=== PATIENT | female | born 1945 | race Caucasian/White ===

== ENCOUNTER 2024-11-15 20:40 | Observation (INO) ==
[2024-11-15] MEDS ORDERED: IBUPROFEN 800 MG TABLET PO ONE (21:21)
[2024-11-15] MEDS ORDERED: AMOXICILLIN 500 MG CAPSULE ONE (21:22)
--- NOTE | 2024-11-15 21:55 | Emergency Department Note ---
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 found pt just after syncopal episode. Grandson reports patient apparently fell into the [employer] Qual[employer] tree and then hit the tile floor. Event was unwitnessed. Positive loss of consciousness. Pt denies injury. Pt denies HERNANDEZ or neck pain; However, pt is noted to be on Plavix and Eliquis. Patient reports she was seen by Emperatriz Vargas earlier this date and told patient she thinks she has a virus. However, Emperatriz told patient she would treat her as if she has pneumonia and gave her prescriptions for benzonatate, Augmentin and azithromycin. She gave her an order for a chest x-ray if her symptoms have not improved in 2 days. Patient also reports she had cataract surgery approximately 5 days ago MD complaint: Reports loss of consciousness Onset (ago): hour(s) (1) Duration of episode: 2 -: Reports minutes(s) Description of event: Denies tonic-clonic movements, post-event confusion, incontinence, stopped breathing or lost pulse Prodromal symptoms: Reports lightheaded, shortness of breath and nausea/vomiting (nausea only); Denies headache, vision changes, chest pain, palpitations or heart racing Witnessed: No Context: Reports standing up Injuries sustained associated with event: Reports none Current symptoms: Reports lightheaded, shortness of breath, nausea and weakness (generalized) History: Reports history of CAD; Denies seizure disorder, previous syncopal episode or seizure disorder Treatments prior to arrival: Reports none Related Data Allergies Allergy/AdvReac Type Severity Reaction Status Date / Time No Known Drug Allergies Allergy Verified 11/15/24 20:53 Review of Systems Status of ROS 10 or more systems reviewed and unremark able except as noted in history and below Constitutional Reports: fatigue; Denies: fever or chills Eyes Denies: change in vision, blurry vision, light sensitivity, eye discomfort or eye discharge Ears, nose, mouth, and throat Reports: bad breath and nasal congestion; Denies: throat pain, neck pain, throat swelling, difficulty swallowing, hoarseness, ear pain or change in hearing Cardiovascular Denies: chest pain, palpitations, edema, swelling of feet/ankles or lightheadedness Respiratory Reports: shortness of breath, cough and chest congestion; Denies: wheezing, stridor or pain on inspiration Gastrointestinal Reports: nausea and other (Denies dark, tarry stool); Denies: abdominal pain, vomiting, diarrhea, constipation, change in bowel habits or blood in stool Genitourinary Reports: decreased urine ouput; Denies: painful urination, urinary frequency, urinary urgency, urinary incontinence, blood in urine, difficulty voiding or pelvic pain Musculoskeletal Reports: muscle weakness (generalized); Denies: back pain, neck pain, extremity pain, extremity swelling or limited range of motion Integumentary/Breast Denies: rash, itching, changes in skin color or jaundice Neurological Reports: dizziness; Denies: headache, numbness in extremities, weakness in extremities, lack of coordination, slurred speech, difficulty communicating thoughts or seizure-like activity Psychiatric Denies: anxiety or difficulty concentrating Endocrine Reports: fatigue; Denies: excessive urination or excessive thirst Hematologic/Lymphatic Reports: easy bruising and easy bleeding Allergic/Immunologic Denies: hives, throat swelling, tongue swelling, facial swelling, wheezing, itchy eyes or seasonal allergies [facility] Medical History History of heart disease Surgical History S/P triple vessel bypass Social History (Updated 11/15/24 @ 22:15 by Heather Pritchard APRN) Smoking status: former smoker Within the past year, how often did you have a drink containing alcohol: never Score interpretation: A score less than 3 is consistent with normal alcohol consumption. Non-prescribed substance use: denies use Problems where you live: no known problems Highest level of school completed/degree received: College Exam Constitutional: normal general appearance, no apparent distress, abnormal body habitus (overweight), no limitations and alert Vital Signs - 24 hr 11/15/24 20:50 11/15/24 23:30 11/15/24 23:58 Temperature 98.1 F Pulse Rate 91 H 69 72 Respiratory Rate 18 16 13 Blood Pressure 114/63 110/62 120/59 Pulse Oximetry 92 L 96 95 Oxygen Delivery Me thod Room Air 11/16/24 00:00 11/16/24 00:30 Temperature Pulse Rate 70 73 Respiratory Rate 15 16 Blood Pressure 130/62 129/67 Pulse Oximetry 93 L 94 L Oxygen Delivery Me thod HENMT: normocephalic, head/scalp atraumatic, hearing grossly normal bilaterally, external ears normal, TMs normal bilaterally, nasal mucous membranes abnormal (nasal discharge) (Mild clear rhinorrhea), external nose normal, oral mucous membranes abnormal (dry) and oropharynx abnormal (erythema) (Mild pharyngeal erythema) Eyes: PERRL, EOMs intact bilaterally, conjunctivae normal, no scleral icterus, alignment normal and periorbital findings normal Neck/C-Spine: visual inspection normal, trachea midline, cervical spine nontender, cervical full ROM noted, supple and no meningeal signs Lymph: no lymphadenopathy noted Chest: inspection of chest normal and palpation of chest normal Respiratory: breath sounds equal bilaterally, normal respiratory effort, auscultation abnormal (diminished breath sound) (Bilateral bases), wheezing noted, rales noted and use of accessory muscles noted Cardiovascular: normal heart rate noted, regular rhythm noted and no murmur Gastrointestinal: abdomen normal to inspection, abdomen soft to palpation, nontender to palpation, nondistended, normoactive bowel sounds, no hepatosplenomegaly and no masses Genitourinary: no CVA tenderness and bladder normal to palpation Back/Pelvis: spine normal to inspection, no thoracic spine tenderness, no lumbar spine tenderness, thoracic spine ROM normal and lumbar spine ROM normal Extremities: normal to inspection, normal to palpation, no tenderness and no deformity Neurology: 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 sheet 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, no movement abnormality noted, no focal motor deficit noted, no sensory deficits noted, gait normal, speech normal, coordination normal and GCS normal Psychiatry: mental status grossly normal, oriented x3, thought process normal, cooperative and affect normal Skin: skin color normal, no rash, skin turgor normal and no jaundice Course Vital Signs Vital signs: Vital Signs Temperature 98.1 F 11/15/24 20:50 Pulse Rate 91 H 11/15/24 20:50 Respiratory Rate 18 11/15/24 20:50 Blood Pressure 114/63 11/15/24 20:50 Pulse Oximetry 92 L 11/15/24 20:50 Oxygen Delivery Method Room Air 11/15/24 20:50 Temperature 97.9 F 11/16/24 03:45 Pulse Rate 81 11/16/24 03:45 Respiratory Rate 17 11/16/24 03:45 Blood Pressure 122/53 11/16/24 03:45 Pulse Oximetry 96 11/16/24 03:45 Oxygen Delivery Method Room Air 11/16/24 03:45 Oxygen Flow Rate 96 11/16/24 01:10 Critical Care Time Critical Care Time Critical Care Time: Yes Total Critical Care Time: 60 Attestation: Cardiac, pulmonary and syncope workup to include CT brain without contrast, EKG, chest x-ray, orthostatic vital signs, CBC, CMP, CPK, troponin, BNP, D-dimer, COVID, strep, urinalysis and blood cultures x 2. While patient in ED, she received 1 L normal saline IV fluid bolus, followed by normal saline at 125 mL/h, 4 mg IV Zofran, 1 g IV Rocephin, 500 mg IV azithromycin and 75 mg p.o. Tamiflu. Arrangements made for patient to be admitted to observation status giving her orthostatic hypotension, dehydration, syncope, suspected flu, and pneumonia. Discharge Plan Discharge Patient Disposition: Admitted As Observation Condition: Improved Clinical Impression: Syncope, Orthostatic hypotension, Acute dehydration, Nausea, Acute dyspnea, Dizziness, Influenza, Pneumonia Interventions: ED Discharge Assessment Last Done: 11/16/24 02:36 ED Discharge Vital Sign Last Done: 11/16/24 02:37 Emergency Department Charge Sheet Last Done: 11/16/24 02:37 Time of Disposition: 00:30 Discharge Date/Time: 11/16/24 02:39 MDM - Syncope MDM Narrative Medical decision making narrative: CBC within normal limits except for MCV 98.8H, MCH 33.0H, lymph% 16.2 L, [place]% 13.5 H, EOS% 0.1L. CMP within normal limits except for BUN is 19H, glucose 117H. CPK, troponin, BNP and D-dimer are all within normal limits. COVID and strep swabs are negative. Unfortunately we are unable to test for flu given the facility is out of flu swabs; however, patient's has symptoms consistent with the flu. Will start on Tamiflu. O2 sats on room air are 92%. Patient placed on 2 L nasal cannula with improvement in sats to 95%. Chest x-ray shows hazy o pacity in the right lower lobe. Will cover for pneumonia with IV Rocephin and azithromycin. Blood cultures x 2 pending. EKG shows no evidence of acute ischemia. While patient in ED she received 1 L normal saline IV fluid bolus, followed by maintenance fluids of normal saline at 125 mL/h. She also received 4 mg IV Zofran, 1 g IV Rocephin, 500 mg IV azithromycin, 75 mg p.o. Tamiflu. Patient with significant orthostatic hypotension which is the likely cause of her syncopal episode. Patient on Plavix and Eliquis. CT brain without contrast shows no evidence of intracranial hemorrhage or other acute intracranial abnormality. Will continue fall precautions. I have discussed the clinical case, including pertinent positives and negatives with Ilene in utilization review, and the need for further testing/observation in the inpatient arena. She agrees the patient is appropriate for observation status. I have made the patient and family aware of the current disposition plan and they are in agreement. Differential Diagnosis Differential diagnosis: Likely syncope due to orthostatic hypotension, vasovagal syncope, complete atrioventricular block, subarachnoid hemorrhage, pulmonary embolism, dehydration and other (ICH, dehydration, sepsis, pneumonia, COVID, strep, influenza, bronchitis) Medical Records Attestation: I reviewed the patient's medical records. Lab Data Attestation: I reviewed the patient's lab results. Labs: Lab Results 11/15/24 11/16/24 Range/Units 22:00 00:15 WBC 5.5 (4.3-9.3) K/uL RBC 4.3 (4.00-5.50) M/uL Hgb 14.1 (12.5-15.8) gm/dL Hct 42.2 (35.9-46.7) % MCV 98.8 H (81.0-93.7) fl MCH 33.0 H (27.6-32.2) pg MCHC 33.4 (33.1-35.3) g/dl RDW 13.7 (11.4-14.2) % Plt Count 263 (152-353) K/uL MPV 7.9 (6.9-10.8) fl Gran % 69.6 (47.8-71.3) % Lymph % (Auto) 16.2 L (20.0-43.0) % [place] % (Auto) 13.5 H (3.6-9.8) % Eos % (Auto) 0.1 L (0.4-2.8) % Baso % (Auto) 0.6 (0.1-0.85) Lymph # (Auto) 0.9 L (1.1-3.1) [place] # (Auto) 0.7 L (1.1-3.1) Eos # (Auto) 0.0 (0.0-0.2) Baso # (Auto) 0.0 (0.0-0.1) Absolute Gran (auto) 3.8 (2.3-6.0) D-Dimer 300 (100-600) ng/mL Sodium 136 (136-145) mmol/L Potassium 4.5 (3.6-5.2) mmol/L Chloride 100.0 (98-107) mmol/L Carbon Dioxide 25 (21-32) mmol/L Anion Gap 11.0 (4-14) mEq/L BUN 19 H (7-18) mg/dL Creatinine 1.2 (0.6-1.3) mg/dL Estimated GFR 46.6 (>59.9) Glucose 117 H (70-110) mg/dL Calcium 8.9 (8.5-10.1) mg/dL Phosphorus 3.7 (2.5-4.9) mg/dL Magnesium 1.9 (1.8-2.4) mg/dL Total Bilirubin 0.34 (0.0-1.0) mg/dL AST 27 (15-37) U/L ALT 16 L (30-65) U/L Alkaline Phosphatase 99 (50-136) U/L Total Creatine Kinase 150 (26-192) U/L Troponin I High Sens 43.00 (4.0-60.4) ng/L B-Natriuretic Peptide 86.0 (0-100) pg/mL Total Protein 7.7 (6.4-8.2) g/dL Albumin 3.5 (3.4-5.0) g/dL COVID-19 (RA) Not detected (Not Detectd) Streptococcus Screen Negative (Negative) Imaging Data Imaging ordered: Chest x-ray and CT scan - head (Without contrast) Attestation: I have reviewed the pertinent imaging results. My impression: CXR - hazy opacity RLL, consistent with pneumonia Radiologist's impression: EXAM: CT HEAD WITHOUT IV CONTRAST HISTORY: Syncope COMPARISON: None. TECHNIQUE: Axial images were acquired of the head without IV contrast. Coronal and sagittal images were provided. All images were reviewed in a variety of windows and levels. LIMITATIONS: Please note that CT has low sensitivity and accuracy for identifying acute infarction. In addition, there are portions of the brain that are affected by beam hardening artifact which further greatly limits identification of an acute infarct. RADIATION REDUCTION TECHNIQUE: Automated exposure control, Adjustment of the mA and/or kV according to patient size, or iterative reconstruction techniques were used. FINDINGS: There is diffuse cerebral atrophy with a regional distribution of low attenuation along the periventricular white matter most likely representing small vessel ischemic changes which are to a degree that would be considered within normal limits for the patient's stated age. There is no evidence of an acute intracranial bleed. There is no evidence of a mass or midline shift. There is no evidence of an extra-axial fluid collection. The schreiber-white matter differentiation is within normal limits. The visualized bones are unremarkable. The visualized sinuses are clear. The mastoid air cells are well-aerated. IMPRESSION: 1. INVOLUTIONAL CHANGES ARE PRESENT WITH FINDINGS SUGGESTING SMALL VESSEL ISCHEMIC DISEASE WHICH IS TO A DEGREE THAT WOULD BE CONSIDERED WITHIN NORMAL LIMITS FOR THE PATIENT'S STATED AGE. 2. THERE IS NO EVIDENCE OF ACUTE INTRACRANIAL BLEED. THIS IS AN ELECTRONICALLY VERIFIED FINAL REPORT 11/15/2024 10:25 PM - Electronically signed by Luigi Magdaleno MD ECG Data Attestation: I personally reviewed and interpreted this ECG as follows: ECG interpretation date: 11/15/24 ECG interpretation time: 22:23 Prior ECG tracings: not available for review Interpretation: Normal sinus rhythm with PACs Rate 100 RR 604 Left atrial enlargement Normal DILLON Normal QRS Nonspecific ST-T wave changes Normal QT/QTc interval
[2024-11-15] MEDS: ONDANSETRON HCL/PF 4 MG/2 ML VIAL IVP STA (22:04)
[2024-11-15] MEDS: 0.9 % SODIUM CHLORIDE 1000 ML 1,000 ML IV STA (22:04)
[2024-11-15 22:37] LABS: Basophils%(Percent) Auto 0.6 (0.1-0.85); Eosinophils%(Percent) Auto 0.1 % (0.4-2.8); Granulocytes % - Auto 69.6 % (47.8-71.3); Granulocytes#(Absolute)- Auto 3.8 (2.3-6.0); Hematocrit 42.2 % (35.9-46.7); Mean Corpuscular Volume 98.8 fl (81.0-93.7); Monocytes #(Absolute)- Auto 0.7 (1.1-3.1); Monocytes %(Percent)- Auto 13.5 % (3.6-9.8); Platelet Count 263 K/uL (152-353); White Blood Count 5.5 K/uL (4.3-9.3)
[2024-11-15 22:50] LABS: Potassium 4.5 mmol/L (3.6-5.2)
[2024-11-16] MEDS ORDERED: 0.9 % SODIUM CHLORIDE 50 ML IV ONE (00:50)
[2024-11-16] MEDS ORDERED: CEFTRIAXONE SODIUM 1 GM VIAL ONE (00:50)
[2024-11-16] MEDS: CEFTRIAXONE SODIUM 1 GM in 0.9 % SODIUM CHLORIDE MB+ 50 ML IV ONE (00:54)
[2024-11-16 01:15] LABS: Urine Appearance CLEAR (CLEAR); Urine Blood NEGATIVE (NEG - TRACE); Urine Color YELLOW (STRAW/YELL.); Urine Urobilinogen Normal (NORMAL)
[2024-11-16] MEDS ORDERED: 0.9 % SODIUM CHLORIDE 250 ML IV ONE (02:23)
[2024-11-16] MEDS ORDERED: AZITHROMYCIN 500 MG VIAL ONE (02:23)
[2024-11-16] MEDS: OSELTAMIVIR PHOSPHATE 75 MG CAPSULE PO SCH (02:46)
[2024-11-16] MEDS: 0.9 % SODIUM CHLORIDE 1000 ML 1,000 ML IV STA (02:46)
[2024-11-16] MEDS: AZITHROMYCIN 500 MG 500 MG in 0.9 % SODIUM CHLORIDE 250 ML IV ONE (02:46)
[2024-11-16] MEDS ORDERED: bisacodyL 10 MG SUPP.RECT PR PRN (02:51)
[2024-11-16] MEDS ORDERED: CODEINE PHOSPHATE/GUAIFENESIN 200/20 MG/ 10 ML LIQUID PO PRN (02:51)
[2024-11-16] MEDS ORDERED: ACETAMINOPHEN 500 MG TABLET PO PRN (02:51)
[2024-11-16] MEDS: 0.9 % SODIUM CHLORIDE 1000 ML 1,000 ML IV SCH (03:29)
[2024-11-16] MEDS ORDERED: OSELTAMIVIR PHOSPHATE 75 MG CAPSULE PO SCH (09:00)
[2024-11-16 11:36] LABS: Eosinophils%(Percent) Auto 0.5 % (0.4-2.8); Granulocytes#(Absolute)- Auto 2.3 (2.3-6.0); Monocytes #(Absolute)- Auto 0.7 (1.1-3.1)
[2024-11-16 11:37] LABS: Granulocytes % - Auto 54.3 % (47.8-71.3); Mean Corpuscular Volume 98.5 fl (81.0-93.7); Monocytes %(Percent)- Auto 16.3 % (3.6-9.8); Platelet Count 219 K/uL (152-353); White Blood Count 4.2 K/uL (4.3-9.3)
[2024-11-16] MEDS: IPRATROPIUM/ALBUTEROL SULFATE 3 ML AMPUL.NEB INH SCH ×2 (11:37→12:59)
[2024-11-16 11:53] LABS: Potassium 3.9 mmol/L (3.6-5.2)
[2024-11-16] MEDS ORDERED: METHYLPREDNISOLONE SOD SUCC/PF 40 MG/ML VIAL INJ SCH (13:00)
[2024-11-16] MEDS: METHYLPREDNISOLONE SOD SUCC/PF 40 MG/ML VIAL INJ ONE (16:10)
--- NOTE | 2024-11-16 18:04 | History & Physical Report ---
H&P: HPI History of Present Illness Chief complaint: SYNCOPE,ORTHOSTATIC HYPOTENSION,DEHYDRATION,FLU,DY Narrative: 79-year-old female presents to the ED this evening, via EMS, with complaints of nausea, dizziness, cough, shortness of breath, and nasal congestion x 2 days, now with syncopal episode just [facility]. found pt just after syncopal episode. Grandson reports patient apparently fell into the [employer] tree and then hit the tile floor. Event was unwitnessed. Positive loss of consciousness. Pt denies injury. Pt denies HERNANDEZ or neck pain; However, pt is noted to be on Plavix and Eliquis. Patient reports she was seen by Emperatriz Vargas earlier this date and told patient she thinks she has a virus. However, Emperatriz told patient she would treat her as if she has pneumonia and gave her prescriptions for benzonatate, Augmentin and azithromycin. She gave her an order for a chest x-ray if her symptoms have not improved in 2 days. Patient also reports she had cataract surgery approximately 5 days ago. Admitted to med/surg for observation and treatment. Review of Systems Status of ROS 10 or more systems reviewed and unremark able except as noted in history and below Constitutional Reports: fatigue; Denies: fever or chills Eyes Denies: change in vision, blurry vision, light sensitivity, eye discomfort or eye discharge Ears, nose, mouth, and throat Reports: bad breath and nasal congestion; Denies: throat pain, neck pain, throat swelling, difficulty swallowing, hoarseness, ear pain or change in hearing Cardiovascular Reports: shortness of breath with exertion; Denies: chest pain, palpitations, edema, swelling of feet/ankles or lightheadedness Respiratory Reports: shortness of breath, cough and chest congestion; Denies: wheezing, stridor or pain on inspiration Gastrointestinal Reports: nausea and other (Denies dark, tarry stool); Denies: abdominal pain, vomiting, diarrhea, constipation, difficulty swallowing, change in bowel habits or blood in stool Genitourinary Reports: decreased urine ouput; Denies: painful urination, urinary frequency, urinary urgency, urinary incontinence, blood in urine, difficulty voiding or pelvic pain Musculoskeletal Reports: muscle weakness (generalized); Denies: back pain, neck pain, extremity pain, extremity swelling or limited range of motion Integumentary/Breast Denies: rash, itching, changes in skin color or jaundice Neurological Reports: dizziness; Denies: headache, numbness in extremities, weakness in extremities, lack of coordination, slurred speech, difficulty communicating thoughts or seizure-like activity Psychiatric Denies: anxiety or difficulty concentrating Endocrine Reports: fatigue; Denies: excessive urination or excessive thirst Hematologic/Lymphatic Reports: easy bruising and easy bleeding Allergic/Immunologic Denies: hives, throat swelling, tongue swelling, facial swelling, wheezing, itchy eyes or seasonal allergies PFSH PFS Medical History History of heart disease Surgical History S/P triple vessel bypass Social History (Updated 11/15/24 @ 22:15 by Heather Pritchard APRN) Smoking status: former smoker Within the past year, how often did you have a drink containing alcohol: never Score interpretation: A score less than 3 is consistent with normal alcohol consumption. Non-prescribed substance use: denies use Problems where you live: no known problems Highest level of school completed/degree received: [employer] Meds Home Medications and Allergies Home Medications Medication Instructions Recorded Confirmed Type albuterol sulfate 90 mcg/actuation 1 puff inhalation Q4H PRN 11/16/24 11/16/24 History aerosol inhaler shortness of breath or wheezing apixaban 2.5 mg tablet (Eliquis) 2.5 mg PO BID 11/16/24 11/16/24 History bromfenac 0.09 % eye drops 1 drp ophthalmic (eye) DAILY 11/16/24 11/16/24 History clopidogrel 75 mg tablet 75 mg PO DAILY 11/16/24 11/16/24 History dapagliflozin propanediol 10 mg 10 mg PO DAILY 11/16/24 11/16/24 History tablet (Farxiga) docusate sodium 100 mg capsule 100 mg PO DAILY 11/16/24 11/16/24 History (Colace) evolocumab 140 mg/mL subcutaneous 140 mg subcut Q14D 11/16/24 11/16/24 History pen injector (Repatha SureClick) fexofenadine 180 mg tablet 180 mg PO DAILY 11/16/24 11/16/24 History (Allergy Relief (fexofenadine)) metoprolol tartrate 50 mg tablet 25 mg PO BID 11/16/24 11/16/24 History montelukast 10 mg tablet 10 mg PO DAILY 11/16/24 11/16/24 History nitroglycerin 0.4 mg/hr 1 patch transdermal Q24H 11/16/24 11/16/24 History transdermal 24 hour patch ofloxacin 0.3 % eye drops 1 drp ophthalmic (eye) QID 11/16/24 11/16/24 History omeprazole 40 mg capsule,delayed 40 mg PO BID 11/16/24 11/16/24 History release prednisolone acetate 1 % eye 1 drp ophthalmic (eye) QID 11/16/24 11/16/24 History drops,suspension spironolactone 25 mg tablet 25 mg PO DAILY 11/16/24 11/16/24 History triamcinolone acetonide 55 mcg 2 spray intranasal DAILY 11/16/24 11/16/24 History nasal spray aerosol Allergies Allergy/AdvReac Type Severity Reaction Status Date / Time No Known Drug Allergies Allergy Verified 11/15/24 20:53 Exam Exam: Patient in lower pizarro's position upon entering room for exam. Patient in a positive disposition. Constitutional: normal general appearance, distress noted (mild), abnormal body habitus (obese), no limitations and alert Vital Signs - 24 hr 11/15/24 20:50 11/15/24 23:30 11/15/24 23:58 Temperature 98.1 F Pulse Rate 91 H 69 72 Pulse Rate [Bilate ral] Respiratory Rate 18 16 13 Blood Pressure 114/63 110/62 120/59 Blood Pressure [Le ft Radial Artery] Pulse Oximetry 92 L 96 95 Oxygen Delivery Me thod Room Air Oxygen Flow Rate 11/16/24 00:00 11/16/24 00:30 11/16/24 01:10 Temperature Pulse Rate 70 73 Pulse Rate [Bilate ral] Respiratory Rate 15 16 Blood Pressure 130/62 129/67 Blood Pressure [Le ft Radial Artery] Pulse Oximetry 93 L 94 L Oxygen Delivery De thod Oxygen Flow Rate 96 11/16/24 02:37 11/16/24 03:45 11/16/24 08:00 Temperature 97.9 F 98.3 F Pulse Rate 76 Pulse Rate [Bilate ral] 81 72 Respiratory Rate 16 17 19 Blood Pressure 111/54 Blood Pressure [Le ft Radial Artery] 122/53 131/61 Pulse Oximetry 93 L 96 93 L Oxygen Delivery Me thod Room Air Room Air Oxygen Flow Rate 11/16/24 12:00 11/16/24 15:39 11/16/24 15:49 Temperature 98.9 F 98.5 F Pulse Rate Pulse Rate [Bilate ral] 75 78 Respiratory Rate 18 18 Blood Pressure Blood Pressure [Le ft Radial Artery] 119/44 129/56 Pulse Oximetry 97 100 99 Oxygen Delivery Me thod Room Air Room Air Oxygen Flow Rate HENMT: normocephalic, head/scalp atraumatic, hearing grossly normal bilaterally, external ears normal, TMs normal bilaterally, nasal mucous membranes abnormal (nasal discharge) (Mild clear rhinorrhea), external nose normal, oral mucous membranes abnormal (dry) and oropharynx abnormal (erythema) (Mild pharyngeal erythema) Eyes: PERRL, EOMs intact bilaterally, conjunctivae normal, no scleral icterus, alignment normal and periorbital findings normal Neck/C-Spine: visual inspection normal, trachea midline, cervical spine nontender, cervical full ROM noted, supple and no meningeal signs Lymph: no lymphadenopathy noted Chest: inspection of chest normal and palpation of chest normal Respiratory: breath sounds equal bilaterally, normal respiratory effort, auscultation abnormal (diminished breath sound) (Bilateral bases), wheezing noted, rales noted and use of accessory muscles noted Cardiovascular: normal heart rate noted, regular rhythm noted and no murmur Gastrointestinal: abdomen normal to inspection, abdomen soft to palpation, nontender to palpation, nondistended, normoactive bowel sounds, no hepatosplenomegaly and no masses Genitourinary: no CVA tenderness and bladder normal to palpation Back/Pelvis: spine normal to inspection, no thoracic spine tenderness, no lumbar spine tenderness, thoracic spine ROM normal and lumbar spine ROM normal Extremities: normal to inspection, normal to palpation, no tenderness and no deformity Neurology: grain processor II-XII intact, no movement abnormality noted, no focal motor deficit noted, no sensory deficits noted, gait normal, speech normal, coordination normal and GCS normal Psychiatry: mental status grossly normal, oriented x3, thought process normal, cooperative and affect normal Skin: skin color normal, no rash, skin turgor normal and no jaundice Assessment and Plan Assessment and Plan (1) Right lower lobe pneumonia: Qualifiers: Pneumonia type: due to unspecified organism Qualified Code(s): J18.9 - Pneumonia, unspecified organism Code(s): J18.9 - Pneumonia, unspecified organism (2) Dehydration: Code(s): E86.0 - Dehydration (3) Influenza: Code(s): J11.1 - Influenza due to unidentified influenza virus with other respiratory manifestations (4) Syncope: Qualifiers: Syncope type: vasovagal syncope Qualified Code(s): R55 - Syncope and collapse Code(s): R55 - Syncope and collapse Plan Sodium Chloride 1,000 ms @ 85 mls/hr IV CONT Oseltamivir Phosphate 75 mg PO BID Ceftriaxone Sodium 1 gm in Sodium Chloride 50 mls @100 mls/hr IV BEDTIME Azithromycin 500 mg in Sodium Chloride 250 mls @ 250 mls/hr IV BEDTIME Apixaban 2.5 mg PO BID Metoprolol Tartrate 25 mg PO BID Albuterol Sulfate 3 ml INH RQ4 Methylprednisolone Sodium Succinate 40 mg INJ Q12H Acetaminophen 1,000 mg PO Q6H PRN Bisacodyl 10 mg [place] DAILY PRN Guaifenesin/Codeine Phosphate 5 ml PO Q4H PRN Ondansetron Hcl 4 mg INJ Q6H PRN Requested RT Repeat EKG Repeat CBC & CMP now and daily in the AM. Decrease fluids to 85 ml/hr Started Solu-Medrol and DuoNeb Q6H PRN Restart Home Meds Results Labs Labs: CBC WBC 4.2 K/uL (4.3-9.3) L 11/16/24 11:33 RBC 4.0 M/uL (4.00-5.50) 11/16/24 11:33 Hgb 13.2 gm/dL (12.5-15.8) 11/16/24 11:33 Hct 39.0 % (35.9-46.7) 11/16/24 11:33 MCV 98.5 fl (81.0-93.7) H 11/16/24 11:33 MCH 33.3 pg (27.6-32.2) H 11/16/24 11:33 MCHC 33.8 g/dl (33.1-35.3) 11/16/24 11:33 RDW 13.8 % (11.4-14.2) 11/16/24 11:33 Plt Count 219 K/uL (152-353) 11/16/24 11:33 MPV 7.8 fl (6.9-10.8) 11/16/24 11:33 Gran % 54.3 % (47.8-71.3) 11/16/24 11:33 Lymph % (Auto) 27.9 % (20.0-43.0) 11/16/24 11:33 [place] % (Auto) 16.3 % (3.6-9.8) H 11/16/24 11:33 Eos % (Auto) 0.5 % (0.4-2.8) 11/16/24 11:33 Baso % (Auto) 1.0 (0.1-0.85) H 11/16/24 11:33 Lymph # (Auto) 1.2 (1.1-3.1) 11/16/24 11:33 [place] # (Auto) 0.7 (1.1-3.1) L 11/16/24 11:33 Eos # (Auto) 0.0 (0.0-0.2) 11/16/24 11:33 Baso # (Auto) 0.0 (0.0-0.1) 11/16/24 11:33 Absolute Gran (auto) 2.3 (2.3-6.0) 11/16/24 11:33 BMP Sodium 138 mmol/L (136-145) 11/16/24 11:33 Potassium 3.9 mmol/L (3.6-5.2) 11/16/24 11:33 Chloride 105.0 mmol/L (98-107) 11/16/24 11:33 Carbon Dioxide 23 mmol/L (21-32) 11/16/24 11:33 Anion Gap 10.0 mEq/L (4-14) 11/16/24 11:33 BUN 14 mg/dL (7-18) 11/16/24 11:33 Creatinine 1.0 mg/dL (0.6-1.3) 11/16/24 11:33 Estimated GFR 58.0 (>59.9) 11/16/24 11:33 Glucose 92 mg/dL (70-110) 11/16/24 11:33 Calcium 8.7 mg/dL (8.5-10.1) 11/16/24 11:33 Phosphorus 3.7 mg/dL (2.5-4.9) 11/16/24 00:15 Magnesium 1.9 mg/dL (1.8-2.4) 11/16/24 00:15 Total Bilirubin 0.28 mg/dL (0.0-1.0) 11/16/24 11:33 AST 18 U/L (15-37) 11/16/24 11:33 ALT 16 U/L (30-65) L 11/16/24 11:33 Alkaline Phosphatase 89 U/L (50-136) 11/16/24 11:33 Total Protein 7.0 g/dL (6.4-8.2) 11/16/24 11:33 Albumin 3.2 g/dL (3.4-5.0) L 11/16/24 11:33 Cardiac Enzymes Troponin I High Sens 43.00 ng/L (4.0-60.4) 11/15/24 22:00 Liver Function Total Bilirubin 0.28 mg/dL (0.0-1.0) 11/16/24 11:33 AST 18 U/L (15-37) 11/16/24 11:33 ALT 16 U/L (30-65) L 11/16/24 11:33 Alkaline Phosphatase 89 U/L (50-136) 11/16/24 11:33 Total Protein 7.0 g/dL (6.4-8.2) 11/16/24 11:33 Albumin 3.2 g/dL (3.4-5.0) L 11/16/24 11:33 Urine Urine Color Yellow (STRAW/YELL.) 11/16/24 01:05 Urine Appearance Clear (CLEAR) 11/16/24 01:05 Ur Specific [place] 1.020 (1.001-1.035) 11/16/24 01:05 Urine Protein Negative (NEGATIVE) 11/16/24 01:05 Urine Glucose (UA) 2+ (NORMAL) 11/16/24 01:05 Urine Ketones Negative (NEGATIVE) 11/16/24 01:05 Urine Occult Blood Negative (NEG - TRACE) 11/16/24 01:05 Urine Nitrite Negative (NEGATIVE) 11/16/24 01:05 Urine Bilirubin Negative (NEGATIVE) 11/16/24 01:05 Urine Urobilinogen Normal (NORMAL) 11/16/24 01:05 Ur Leukocyte Esterase Negative (NEGATIVE) 11/16/24 01:05 Imaging Imaging ordered: Chest x-ray and CT scan - head Radiologist's impression: CT HEAD WITHOUT IV CONTRAST HISTORY: Syncope COMPARISON: None. TECHNIQUE: Axial images were acquired of the head without IV contrast. Coronal and sagittal images were provided. All images were reviewed in a variety of windows and levels. LIMITATIONS: Please note that CT has low sensitivity and accuracy for identifying acute infarction. In addition, there are portions of the brain that are affected by beam hardening artifact which further greatly limits identification of an acute infarct. RADIATION REDUCTION TECHNIQUE: Automated exposure control, Adjustment of the mA and/or kV according to patient size, or iterative reconstruction techniques were used. FINDINGS: There is diffuse cerebral atrophy with a regional distribution of low attenuation along the periventricular white matter most likely representing small vessel ischemic changes which are to a degree that would be considered within normal limits for the patient's stated age. There is no evidence of an acute intracranial bleed. There is no evidence of a mass or midline shift. There is no evidence of an extra-axial fluid collection. The schreiber-white matter differentiation is within normal limits. The visualized bones are unremarkable. The visualized sinuses are clear. The mastoid air cells are well-aerated. IMPRESSION: 1. INVOLUTIONAL CHANGES ARE PRESENT WITH FINDINGS SUGGESTING SMALL VESSEL ISCHEMIC DISEASE WHICH IS TO A DEGREE THAT WOULD BE CONSIDERED WITHIN NORMAL LIMITS FOR THE PATIENT'S STATED AGE. 2. THERE IS NO EVIDENCE OF ACUTE INTRACRANIAL BLEED. Portable chest HISTORY: Dyspnea COMPARISON: 05/25/2024 FINDINGS: Patient is status post median sternotomy. Heart size is normal. Bhumika are normal. Lungs well inflated and free of acute infiltrates. No pleural effusions identified. Bony thorax is unremarkable. IMPRESSION: Lungs clear
[2024-11-16] MEDS: CEFTRIAXONE SODIUM 1 GM in 0.9 % SODIUM CHLORIDE MB+ 50 ML IV SCH (20:19)
[2024-11-16] MEDS: AZITHROMYCIN 500 MG 500 MG in 0.9 % SODIUM CHLORIDE 250 ML IV SCH (20:19)
[2024-11-16] MEDS: METOPROLOL TARTRATE 50 MG TABLET PO SCH (20:20)
[2024-11-16] MEDS: APIXABAN 2.5 MG TABLET PO SCH (20:20)
[2024-11-17] MEDS: ONDANSETRON HCL/PF 4 MG/2 ML VIAL INJ PRN (00:29)
[2024-11-17] MEDS ORDERED: METHYLPREDNISOLONE SOD SUCC/PF 40 MG/ML VIAL INJ SCH (01:00)
[2024-11-17] MEDS: METHYLPREDNISOLONE SOD SUCC/PF 40 MG/ML VIAL INJ SCH (03:28)
[2024-11-17 07:24] LABS: Basophils%(Percent) Auto 0.1 (0.1-0.85); Granulocytes % - Auto 78.9 % (47.8-71.3); Granulocytes#(Absolute)- Auto 3.8 (2.3-6.0); Hematocrit 36.5 % (35.9-46.7); Mean Corpuscular Volume 97.9 fl (81.0-93.7); Monocytes #(Absolute)- Auto 0.2 (1.1-3.1); Monocytes %(Percent)- Auto 4.3 % (3.6-9.8); Platelet Count 229 K/uL (152-353); White Blood Count 4.8 K/uL (4.3-9.3)
[2024-11-17 07:32] LABS: Potassium 4.2 mmol/L (3.6-5.2)
--- NOTE | 2024-11-17 11:25 | Progress Note ---
Progress Note: Subjective Subjective Interval history: Patient is a 79 year old female admitted to med/surg for as an inpatient on 11/16/2024. Patient symptoms and acute problems have improved, however, still has wheezing on left and tight airway with coughing. Provider will continue to monitor and re-evaluate tomorrow morning. Exam Exam: Patient in lower pizarro's position upon entering room for exam. Patient in a po sitive disposition. Constitutional: normal general appearance, no apparent distress, abnormal body habitus (obese), no limitations and alert Vital Signs - 24 hr 11/16/24 12:00 11/16/24 15:39 11/16/24 15:49 Temperature 98.9 F 98.5 F Pulse Rate Pulse Rate [Bilate ral] 75 78 Respiratory Rate 18 18 Blood Pressure Blood Pressure [Le ft Radial Artery] 119/44 129/56 Pulse Oximetry 97 100 99 Oxygen Delivery Me thod Room Air Room Air 11/16/24 19:36 11/16/24 20:20 11/16/24 20:36 Temperature 98.3 F Pulse Rate 73 Pulse Rate [Bilate ral] 73 Respiratory Rate 17 Blood Pressure 122/53 Blood Pressure [Le ft Radial Artery] 122/53 Pulse Oximetry 95 94 L Oxygen Delivery Me thod Room Air 11/16/24 23:26 11/16/24 23:41 11/17/24 03:50 Temperature 98.4 F 98.4 F Pulse Rate Pulse Rate [Bilate ral] 74 81 Respiratory Rate 18 20 Blood Pressure Blood Pressure [Le ft Radial Artery] 103/48 110/52 Pulse Oximetry 94 L 96 96 Oxygen Delivery Me thod Room Air Room Air 11/17/24 07:42 11/17/24 08:07 Temperature 97.9 F Pulse Rate Pulse Rate [Bilate ral] 64 Respiratory Rate 19 Blood Pressure Blood Pressure [Le ft Radial Artery] 128/61 Pulse Oximetry 95 100 Oxygen Delivery Me thod Room Air HENMT: normocephalic, head/scalp atraumatic, hearing grossly normal bilaterally, external ears normal, TMs normal bilaterally, nasal mucous membranes abnormal (nasal discharge) (Mild clear rhinorrhea), external nose n ormal, oral mucous membranes abnormal (dry) and oropharynx abnormal (erythema) (Mild pharyngeal erythema) Eyes: PERRL, EOMs intact bilaterally, conjunctivae normal, no scleral icterus, alignment normal and periorbital findings normal Neck/C-Spine: visual inspection normal, trachea midline, cervical spine nontender, cervical full ROM noted, supple and no meningeal signs Lymph: no lymphadenopathy noted Chest: inspection of chest normal and palpation of chest normal Respiratory: breath sounds equal bilaterally, normal respiratory effort, auscultation abnormal (diminished breath sound) (worse on left), wheezing noted, rales noted and use of accessory muscles noted Cardiovascular: normal heart rate noted, regular rhythm noted and no murmur Gastrointestinal: abdomen normal to inspection, abdomen soft to palpation, nontender to palpation, nondistended, normoactive bowel sounds, no hepatosplenomegaly and no masses Genitourinary: no CVA tenderness and bladder normal to palpation Back/Pelvis: spine normal to inspection, no thoracic spine tenderness, no lumbar spine tenderness, thoracic spine ROM normal and lumbar spine ROM normal Extremities: normal to inspection, normal to palpation, no tenderness and no deformity Neurology: marine mechanic II-XII 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, no movement abnormality noted, no focal motor deficit noted, no sensory deficits noted, gait normal, speech normal, coordination normal and GCS normal Psychiatry: mental status grossly normal, oriented x3, thought process normal, cooperative and affect normal Skin: skin color normal, no rash, skin turgor normal and no jaundice Progress Note: Objective Labs Labs: CBC WBC 4.8 K/uL (4.3-9.3) 11/17/24 06:45 RBC 3.7 M/uL (4.00-5.50) L 11/17/24 06:45 Hgb 12.3 gm/dL (12.5-15.8) L 11/17/24 06:45 Hct 36.5 % (35.9-46.7) 11/17/24 06:45 MCV 97.9 fl (81.0-93.7) H 11/17/24 06:45 MCH 33.0 pg (27.6-32.2) H 11/17/24 06:45 MCHC 33.7 g/dl (33.1-35.3) 11/17/24 06:45 RDW 13.6 % (11.4-14.2) 11/17/24 06:45 Plt Count 229 K/uL (152-353) 11/17/24 06:45 MPV 8.1 fl (6.9-10.8) 11/17/24 06:45 Gran % 78.9 % (47.8-71.3) H 11/17/24 06:45 Lymph % (Auto) 16.7 % (20.0-43.0) L 11/17/24 06:45 [place] % (Auto) 4.3 % (3.6-9.8) 11/17/24 06:45 Eos % (Auto) 0.0 % (0.4-2.8) L 11/17/24 06:45 Baso % (Auto) 0.1 (0.1-0.85) 11/17/24 06:45 Lymph # (Auto) 0.8 (1.1-3.1) L 11/17/24 06:45 [place] # (Auto) 0.2 (1.1-3.1) L 11/17/24 06:45 Eos # (Auto) 0.0 (0.0-0.2) 11/17/24 06:45 Baso # (Auto) 0.0 (0.0-0.1) 11/17/24 06:45 Absolute Gran (auto) 3.8 (2.3-6.0) 11/17/24 06:45 BMP Sodium 139 mmol/L (136-145) 11/17/24 06:45 Potassium 4.2 mmol/L (3.6-5.2) 11/17/24 06:45 Chloride 105.0 mmol/L (98-107) 11/17/24 06:45 Carbon Dioxide 25 mmol/L (21-32) 11/17/24 06:45 Anion Gap 9.0 mEq/L (4-14) 11/17/24 06:45 BUN 15 mg/dL (7-18) 11/17/24 06:45 Creatinine 0.9 mg/dL (0.6-1.3) 11/17/24 06:45 Estimated GFR 65.8 (>59.9) 11/17/24 06:45 Glucose 109 mg/dL (70-110) 11/17/24 06:45 Calcium 8.7 mg/dL (8.5-10.1) 11/17/24 06:45 Phosphorus 3.7 mg/dL (2.5-4.9) 11/16/24 00:15 Magnesium 1.9 mg/dL (1.8-2.4) 11/16/24 00:15 Total Bilirubin 0.17 mg/dL (0.0-1.0) 11/17/24 06:45 AST 20 U/L (15-37) 11/17/24 06:45 ALT 18 U/L (30-65) L 11/17/24 06:45 Alkaline Phosphatase 85 U/L (50-136) 11/17/24 06:45 Total Protein 6.7 g/dL (6.4-8.2) 11/17/24 06:45 Albumin 2.9 g/dL (3.4-5.0) L 11/17/24 06:45 Cardiac Enzymes Troponin I High Sens 43.00 ng/L (4.0-60.4) 11/15/24 22:00 Liver Function Total Bilirubin 0.17 mg/dL (0.0-1.0) 11/17/24 06:45 AST 20 U/L (15-37) 11/17/24 06:45 ALT 18 U/L (30-65) L 11/17/24 06:45 Alkaline Phosphatase 85 U/L (50-136) 11/17/24 06:45 Total Protein 6.7 g/dL (6.4-8.2) 11/17/24 06:45 Albumin 2.9 g/dL (3.4-5.0) L 11/17/24 06:45 Urine Urine Color Yellow (STRAW/YELL.) 11/16/24 01:05 Urine Appearance Clear (CLEAR) 11/16/24 01:05 Ur Specific [place] 1.020 (1.001-1.035) 11/16/24 01:05 Urine Protein Negative (NEGATIVE) 11/16/24 01:05 Urine Glucose (UA) 2+ (NORMAL) 11/16/24 01:05 Urine Ketones Negative (NEGATIVE) 11/16/24 01:05 Urine Occult Blood Negative (NEG - TRACE) 11/16/24 01:05 Urine Nitrite Negative (NEGATIVE) 11/16/24 01:05 Urine Bilirubin Negative (NEGATIVE) 11/16/24 01:05 Urine Urobilinogen Normal (NORMAL) 11/16/24 01:05 Ur Leukocyte Esterase Negative (NEGATIVE) 11/16/24 01:05 Progress Note: A&P Assessment and Plan (1) Right lower lobe pneumonia: Qualifiers: Pneumonia type: due to unspecified organism Qualified Code(s): J18.9 - Pneumonia, unspecified organism (2) Dehydration: (3) Influenza: (4) Syncope: Qualifiers: Syncope type: vasovagal syncope Qualified Code(s): R55 - Syncope and collapse Plan Sodium Chloride 1,000 ms @ 85 mls/hr IV CONT Oseltamivir Phosphate 75 mg PO BID Ceftriaxone Sodium 1 gm in Sodium Chloride 50 mls @100 mls/hr IV BEDTIME Azithromycin 500 mg in Sodium Chloride 250 mls @ 250 mls/hr IV BEDTIME Apixaban 2.5 mg PO BID Metoprolol Tartrate 25 mg PO BID Albuterol Sulfate 3 ml INH RQ4 Methylprednisolone Sodium Succinate 40 mg INJ Q12H Acetaminophen 1,000 mg PO Q6H PRN Bisacodyl 10 mg [place] DAILY PRN Guaifenesin/Codeine Phosphate 5 ml PO Q4H PRN Ondansetron Hcl 4 mg INJ Q6H PRN Repeat CBC & CMP daily in the AM. KVO Fluids. Encourage PO Fluids Fall Risk Details Iniguez Fall Scale Risk Level: Low Fall Risk Current Medications: Current Medications Acetaminophen (Acetaminophen 500 Mg Tablet) 1,000 mg PO Q6H PRN PRN Reason: fever/pain Albuterol Sulfate (Ipratropium/Albuterol Sulfate 3 Ml Ampul.Neb) 3 ml INH RQ4 TRUPTI Last Admin: 11/17/24 08:07 Dose: 3 ml Apixaban (Apixaban 2.5 Mg Tablet) 2.5 mg PO BID TRUPTI Last Admin: 11/17/24 09:34 Dose: 2.5 mg Bisacodyl (Bisacodyl 10 Mg Supp.Rect) 10 mg FL DAILY PRN PRN Reason: constipation Guaifenesin/Codeine Phosphate (Codeine Phosphate/Guaifenesin 200/20 Mg/ 10 Ml Liquid) 5 ml PO Q4H PRN PRN Reason: cough Ceftriaxone Sodium 1 gm/ (Sodium Chloride) 50 mls @ 100 mls/hr IV BEDTIME TRUPTI Last Infusion: 11/16/24 21:40 Dose: Infused Azithromycin 500 mg/ Sodium (Chloride) 250 mls @ 250 mls/hr IV BEDTIME TRUPTI Stop: 11/18/24 21:59 Last Infusion: 11/16/24 21:59 Dose: Infused Sodium Chloride (Sodium Chloride) 1,000 mls @ 40 mls/hr IV CONT PENDING SALE TO [facility] Last Admin: 11/17/24 02:17 Dose: Not Given Methylprednisolone Sodium Succinate (Methylprednisolone Sod Succ/Pf 40 Mg/Ml Vial) 40 mg INJ Q12H PENDING SALE TO [facility] Last Admin: 11/17/24 03:28 Dose: 40 mg Metoprolol Tartrate (Metoprolol Tartrate 50 Mg Tablet) 25 mg PO BID PENDING SALE TO [facility] Last Admin: 11/17/24 09:34 Dose: 25 mg Ondansetron HCl (Ondansetron Hcl/Pf 4 Mg/2 Ml Vial) 4 mg INJ Q6H PRN PRN Reason: Nausea And Vomiting Last Admin: 11/17/24 00:29 Dose: 4 mg Oseltamivir Phosphate (Oseltamivir Phosphate 75 Mg Capsule) 75 mg PO BID PENDING SALE TO [facility] Last Admin: 11/17/24 09:34 Dose: 75 mg Time Spent With Patient Time: Total time spent is greater than 50% in coordination of care (as documented) at patient's floor/unit and/or counseling patient:
[2024-11-18 08:32] VITALS: BP 113/86; PULSE 107; RESP 20; TEMP 98.2
--- NOTE | 2024-11-18 15:09 | Discharge Summary ---
DS: Providers Provider Date of admission: 11/16/24 01:04 Primary care physician: Emperatriz Keita NP Admitting clinician: Heather Pritchard Attending physician on admission: Rajat Ugarte Consults: 11/16/24 10:52 Consult to Respiratory Therapy Routine Comment: Consulting Provider: Physician Instructions: Reason for consultation: Determine need for and type of chest physiotherapy Has provider been notified: Yes Attending physician on discharge: Rajat Ugarte Discharging clinician: Rajat Ugarte Anticipated date of discharge: 11/18/24 DS: Diagnosis Discharge Diagnosis (1) Right lower lobe pneumonia: Qualifiers: Pneumonia type: due to unspecified organism Qualified Code(s): J18.9 - Pneumonia, unspecified organism (2) Dehydration: (3) Influenza: (4) Syncope: Qualifiers: Syncope type: vasovagal syncope Qualified Code(s): R55 - Syncope and collapse Plan Ibuprofen 800 mg PO Ondansetron Hcl 4 mg PO Sodium Chloride 1,000 mls IV ONCE Azithromycin 500 mg in Sodium Chloride at 250 ml IV ONCE Ceftriaxone Sodium 1 gm in Sodium Chloride at 50 ml IV ONCE Oseltamivir Phosphate 75 mg PO BID Methylprenisolone Succ 80 mg INJ ONCE Ipratropium/Albuterol Sulfate 3 ml INH RQ4 Metoprolol Tartrate 25 mg PO BID Apixaban 2.5 mg PO BID Discharge home for self care. 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 found pt just after syncopal episode. Grandson reports patient apparently fell into the [employer] tree and then hit the tile floor. Event was unwitnessed. Positive loss of consciousness. Pt denies injury. Pt denies HERNANDEZ or neck pain; However, pt is noted to be on Plavix and Eliquis. Patient reports she was seen by Emperatriz Keita earlier this date and told patient she thinks she has a virus. However, Emperatriz told patient she would treat her as if she has pneumonia and gave her prescriptions for benzonatate, Augmentin and azithromycin. She gave her an order for a chest x-ray if her symptoms have not improved in 2 days. Patient also reports she had cataract surgery approximately 5 days ago. Admitted to med/surg for observation and treatment. Day 1 of hospital stay, patient was in positive disposition however had diminished breath sounds and audible wheezing. Initial EKG was abnormal per provider; follow up EKG was requested and completed. Repeat CBC & CMP now and in AM was ordered. Mrs. Reyna was started on Solu-Medrol and DuoNeb treatments, IV fluids were decreased to 85 mls/hr, and home medications were restarted. Day 2 of hospital stay, the patient is showing some improvement however, still wheezing (worse on left), tight airway, and harsh cough. Lab work consisting of CBC & CMP will be repeated in the following morning. Fluids have been KVO'd and PO fluids are highly encouraged. She will continue to be monitored via labs and symptoms. Day 3 of hospital stay, the patient has continued to improve with treatment recommended by provider. Wheezing and diminished breath sounds are improved, air movement is free, and patient is feeling "better". Patient is ready to discharge home for self care and follow up with PCP in 5-7 days of discharge. She is being discharge with Musinex to loosen phlegm, Duoneb breathing treatments for shortness of breath, tapered steroid dose, and Augmentin to fight infection. Status at Discharge Functional status at discharge: independent ambulation Overall status at discharge: patient is progressing back to baseline Time Spent with Patient Time attestation: Total time spent providing and/or coordinating discharge services: Time spent: greater than 30 minutes Exam Exam: Patient was sitting up at bedside upon entering the room for exam. Constitutional: normal general appearance, no apparent distress, abnormal body habitus (obese), no limitations and alert Vital Signs - 24 hr 11/17/24 16:00 11/17/24 20:00 11/17/24 20:38 Temperature 98.1 F 98.1 F Pulse Rate [Bilate ral] 69 67 Respiratory Rate 20 19 Blood Pressure Blood Pressure [Le ft Radial Artery] 115/57 122/53 Pulse Oximetry 94 L 98 98 Oxygen Delivery Me thod Room Air Room Air 11/17/24 21:50 11/17/24 23:51 11/18/24 00:00 Temperature 98.1 F Pulse Rate [Bilate ral] 66 Respiratory Rate 19 Blood Pressure 122/53 Blood Pressure [Le ft Radial Artery] 120/64 Pulse Oximetry 98 98 Oxygen Delivery Me thod Room Air Room Air 11/18/24 04:00 11/18/24 08:00 Temperature 98.0 F 98.2 F Pulse Rate [Bilate ral] 60 107 H Respiratory Rate 19 20 Blood Pressure Blood Pressure [Le ft Radial Artery] 118/68 113/86 Pulse Oximetry 98 100 Oxygen Delivery Mo thod Room Air Room Air HENMT: normocephalic, head/scalp atraumatic, hearing grossly normal bilaterally, external ears normal, TMs normal bilaterally and external nose normal Eyes: PERRL, EOMs intact bilaterally, conjunctivae normal, no scleral icterus, alignment normal and periorbital findings normal Neck/C-Spine: visual inspection normal, trachea midline, cervical spine nontender, cervical full ROM noted, supple and no meningeal signs Lymph: no lymphadenopathy noted Chest: inspection of chest normal and palpation of chest normal Respiratory: breath sounds equal bilaterally, normal respiratory effort and no use of accessory muscles Cardiovascular: normal heart rate noted, regular rhythm noted and no murmur Gastrointestinal: abdomen normal to inspection, abdomen soft to palpation, nontender to palpation, nondistended, normoactive bowel sounds, no hepatosplenomegaly and no masses Genitourinary: no CVA tenderness and bladder normal to palpation Back/Pelvis: spine normal to inspection, no thoracic spine tenderness, no lumbar spine tenderness, thoracic spine ROM normal and lumbar spine ROM normal Extremities: normal to inspection, normal to palpation, no tenderness and no deformity 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, no movement abnormality noted, no focal motor deficit noted, no sensory deficits noted, gait normal, speech normal, coordination normal and GCS normal Psychiatry: mental status grossly normal, oriented x3, thought process normal, cooperative and affect normal Skin: skin color normal, no rash, skin turgor normal and no jaundice DS: Data Data Completed and Pending Labs on day of discharge: Preliminary micro results at discharge 11/16/24 00:30 Blood Culture - Preliminary Blood - Venous Draw (Peripheral) 11/16/24 01:15 Blood Culture - Preliminary Blood - Venous Draw (Peripheral) Imaging CT scan - head: Radiologist's impression: CT HEAD WITHOUT IV CONTRAST Date of Service: 11/15/24 HISTORY: Syncope COMPARISON: None. TECHNIQUE: Axial images were acquired of the head without IV contrast. Coronal and sagittal images were provided. All images were reviewed in a variety of windows and levels. LIMITATIONS: Please note that CT has low sensitivity and accuracy for identifying acute infarction. In addition, there are portions of the brain that are affected by beam hardening artifact which further greatly limits identification of an acute infarct. RADIATION REDUCTION TECHNIQUE: Automated exposure control, Adjustment of the mA and/or kV according to patient size, or iterative reconstruction techniques were used. FINDINGS: There is diffuse cerebral atrophy with a regional distribution of low attenuation along the periventricular white matter most likely representing small vessel ischemic changes which are to a degree that would be considered within normal limits for the patient's stated age. There is no evidence of an acute intracranial bleed. There is no evidence of a mass or midline shift. There is no evidence of an extra-axial fluid collection. The schreiber-white matter differentiation is within normal limits. The visualized bones are unremarkable. The visualized sinuses are clear. The mastoid air cells are well-aerated. IMPRESSION: 1. INVOLUTIONAL CHANGES ARE PRESENT WITH FINDINGS SUGGESTING SMALL VESSEL ISCHEMIC DISEASE WHICH IS TO A DEGREE THAT WOULD BE CONSIDERED WITHIN NORMAL LIMITS FOR THE PATIENT'S STATED AGE. 2. THERE IS NO EVIDENCE OF ACUTE INTRACRANIAL BLEED. Chest x-ray: Radiologist's impression: Portable chest Date of Service: 11/15/24 HISTORY: Dyspnea COMPARISON: 05/25/2024 FINDINGS: Patient is status post median sternotomy. Heart size is normal. Bhumika are normal. Lungs well inflated and free of acute infiltrates. No pleural effusions identified. Bony thorax is unremarkable. IMPRESSION: Lungs clear Discharge Plan Discharge Disposition: Home, Self-Care Condition: Improved Discharge Medications: New ipratropium-albuterol 0.5 mg-3 mg(2.5 mg base)/3 mL Solution For Nebulization 3 ml inhalation RQ4 30 Days Qty: 1 1RF prednisone 10 mg tablet 10 mg PO DIRECTED Qty: 9 0RF Rx Instructions: 2 tabs daily for 3 days, then 1 tab daily for 3 days, then DC guaifenesin [Mucinex] 600 mg tablet extended release 12hr 600 mg PO BID Qty: 10 1RF Continued albuterol sulfate 90 mcg/actuation HFA aerosol inhaler 1 puff INHALATION Q4H PRN (Reason: shortness of breath or wheezing) Patient Comments: USE 2 PUFFS BY MOUTH EVERY 4 HOURS NEEDED FOR COUGH / WHEEZING bromfenac 0.09 % drops 1 drp OPHTHALMIC (EYE) DAILY Patient Comments: PLACE 1 DROP IN EACH EYE EVERY DAY IN THE MORNING clopidogrel 75 mg tablet 75 mg PO DAILY Patient Comments: TAKE ONE TABLET BY MOUTH DAILY dapagliflozin propanediol [Farxiga] 10 mg tablet 10 mg PO DAILY Patient Comments: TAKE ONE TABLET BY MOUTH ONCE DAILY Repatha SureClick 140 mg/mL pen injector 140 mg SUBCUT Q14D fexofenadine [Allergy Relief (fexofenadine)] 180 mg tablet 180 mg PO DAILY Patient Comments: TAKE ONE TABLET BY MOUTH ONCE DAILY metoprolol tartrate 50 mg tablet 25 mg PO BID Patient Comments: TAKE ONE TABLET BY MOUTH TWICE DAILY montelukast 10 mg tablet 10 mg PO DAILY Patient Comments: TAKE ONE TABLET BY MOUTH ONCE DAILY nitroglycerin 0.4 mg/hr patch 24 hour 1 patch transdermal Q24H Patient Comments: APPLY 1 PATCH ON SKIN DAILY (APPLY IN THE MORNING AND REMOVE IN THE EVENING) ofloxacin 0.3 % drops 1 drp ophthalmic (eye) QID Patient Comments: PLACE 1 DROP IN EACH EYE FOUR TIMES DAILY omeprazole 40 mg capsule,delayed release(DR/EC) 40 mg PO BID Patient Comments: TAKE ONE CAPSULE BY MOUTH TWICE DAILY prednisolone acetate 1 % drops,suspension 1 drp OPHTHALMIC (EYE) QID Patient Comments: PLACE 1 DROP IN EACH EYE FOUR TIMES DAILY spironolactone 25 mg tablet 25 mg PO DAILY Patient Comments: TAKE ONE TABLET BY MOUTH ONCE DAILY triamcinolone acetonide 55 mcg aerosol,spray 2 spray INTRANASAL DAILY Patient Comments: USE 2 SPRAYS IN EACH NOSTRIL DAILY docusate sodium [Colace] 100 mg capsule 100 mg PO DAILY Discontinued Eliquis 2.5 mg tablet 2.5 mg PO BID Patient Comments: TAKE ONE TABLET BY MOUTH TWICE DAILY Discharge Orders: Discharge Order (Routine); Ordered 11/18/24 Ordered By: Rajat Ugarte Interventions: Discharge Assessment Last Done: 11/18/24 11:17 MED/SURG & ICU Observation Charge Sheet Last Done: 11/18/24 06:08 Forms: Portal/Health Info Access Inst Follow-Ups: Emperatriz Keita NP [Primary Care Provider] - 11/22/24 11:30 am Discharge Date/Time: 11/18/24 11:49 Discharge Comment: Pt was instructed to continue Augmentin prescribed
== END 2024-11-18 11:49 | disposition home or self-care (01) ==
LOC: ED 20:40 → MS 20:40 → OBSVTOIN 11-16 01:04 → INTOOBSV 11-16 01:04 → MS 11-16 02:39
PROVIDERS: ADMIT Nurse Practitioner Family; ATTEND Internal Medicine